=== PATIENT | male | born 1955 | race Caucasian/White ===

== ENCOUNTER 2017-12-14 09:28 | Emergency (ER) | payer OTHER ==
[2017-12-14 09:37] VITALS: BP 130/85; PULSE 96; TEMP 97.7; BMI 37.7
[2017-12-14] MEDS ORDERED: ALBUTEROL SO4 2.5/IPRATROPIUM 0.5 INH SOL 3 ML VIAL.NEB. NEB ONE ×2 (09:41→09:45)
[2017-12-14] MEDS ORDERED: AZITHROMYCIN 250 MG TABLET PO ONE (09:42)
[2017-12-14] MEDS ORDERED: AZITHROMYCIN 250 MG TABLET ONE (09:45)
--- NOTE | 2017-12-14 09:49 | PDOC ---
History of Present Illness - General Chief Complaint: Cold Symptoms Stated Complaint: cough,congestion Time Seen by Provider: 12/14/17 09:32 - History of Present Illness Initial Comments: 12/14/17 09:43 62-year-old man history of hypertension presents to the emergency department with persistent coughing for 4 days. The patient presented to an urgent care 4 days ago where he was prescribed Tessalon Perles and albuterol inhaler for a cough, sore throat and nasal congestion that he was having at the time.He reports a sore throat and nasal congestion have resolved but he has a persistent cough that is not allowed him to sleep for the last 3 nights. He has been using the Tessalon Perles and albuterol inhaler with minimal relief. He reports the cough is nonproductive. He denies any associated fevers, chills, body aches. He denies any chest pain or shortness of breath. He reports the sides of his ribs hurt bilaterally when he coughs because he sore from coughing. Denies any abdominal pain, nausea, vomiting, diarrhea. Has a distant history of smoking. Denies any headaches, weakness, numbness. Past History - Past Medical History Allergies/Adverse Reactions: Allergies Allergy/AdvReac Type Severity Reaction Status Date / Time No Known Allergies Allergy Verified 12/14/17 09:29 Home Medications: Ambulatory Orders Amlodipine Besylate/Benazepril [Lotrel 5-10 mg Capsule] 1 each PO DAILY Losartan/Hydrochlorothiazide [Losartan-Hctz 100-25 mg Tab] 1 each PO DAILY 09/09 Albuterol Sulfate Inhaler - [Ventolin Hfa Inhaler -] 2 inh PO Q6H 12/14/17 Benzonatate [Tessalon Pearls -] 200 mg PO TID 12/14/17 Anemia: No Asthma: No Cancer: No Cardiac Disorders: No CVA: No COPD: No DVT: No Dementia: No Diabetes: No Dialysis: No GI Disorders: No Disorders: No HTN: Yes Hypercholesterolemia: No Kidney Stones: No Liver Disease: No Psychiatric Problems: No Seizures: No Thyroid Disease: No Lung CA: No - Surgical History Abdominal Surgery: No Appendectomy: No Cardiac Surgery: No Cholecystectomy: No Gastric Stapling: No GI Surgery: No Lung Surgery: No - Immunization History Td Vaccination: Yes TDAP Vaccination: Yes Immunization Up to Date: Yes - Suicide/Smoking/Psychosocial Hx Smoking Status: No Smoking History: Former smoker Have you smoked in the past 12 months: No Number of Cigarettes Smoked Daily: 0 If you are a former smoker, when did you quit?: 1979 Information on smoking cessation initiated: No Hx Alcohol Use: Yes (occasional) Drug/Substance Use Hx: No Substance Use Type: None Review of Systems - Review of Systems Comments:: 12/14/17 09:49 GENERAL/CONSTITUTIONAL: No fever or chills. No weakness. HEAD, EYES, EARS, NOSE AND THROAT: No change in vision. No ear pain or discharge. No sore throat. GASTROINTESTINAL: No nausea, vomiting, diarrhea or constipation. GENITOURINARY: No dysuria, frequency, or change in urination. CARDIOVASCULAR: No chest pain or shortness of breath. RESPIRATORY: No wheezing, or hemoptysis. +cough MUSCULOSKELETAL: +b/l rib pain. No neck or back pain. SKIN: No rash NEUROLOGIC: No headache, vertigo, loss of consciousness, or change in strength/ sensation. ENDOCRINE: No increased thirst. No abnormal weight change. HEMATOLOGIC/LYMPHATIC: No anemia, easy bleeding, or history of blood clots. ALLERGIC/IMMUNOLOGIC: No hives or skin allergy. *Physical Exam - Vital Signs Last Vital Signs Temp Pulse Resp BP Pulse Ox 97.7 F 96 H 18 130/85 100 12/14/17 09:29 12/14/17 09:29 12/14/17 09:29 12/14/17 09:29 12/14/17 09:29 - Physical Exam Comments: 12/14/17 09:49 GENERAL: Awake, alert, and fully oriented, in no acute distress HEAD: No signs of trauma EYES: PERRLA, EOMI, sclera anicteric, conjunctiva clear ENT: Auricles normal inspection, hearing grossly normal, nares patent, oropharynx clear without exudates. Moist mucosa NECK: Normal ROM, supple, no lymphadenopathy, JVD, or masses LUNGS: +R sided exp wheezing, good air movemennt, no crackles or rhonchi HEART: Regular rate and rhythm, normal S1 and S2, no murmurs, rubs or gallops ABDOMEN: Soft, nontender, normoactive bowel sounds. No guarding, no rebound. No masses EXTREMITIES: Normal range of motion, no edema. No clubbing or cyanosis. No cords, erythema, or tenderness NEUROLOGICAL: Normal speech, cranial nerves intact, negative pronator drift, 5/ 5 strength in all 4 extremities, normal sensation to light touch in all 4 extremities, normal cerebellar exam, normal gait, normal reflexes and tone SKIN: Warm, Dry, normal turgor, no rashes or lesions noted. ED Treatment Course - RADIOLOGY Radiology Studies Ordered: Category Date Time Status CHEST PA & LAT [RAD] Stat Radiology 12/14/17 09:41 Ordered Medical Decision Making - Medical Decision Making 12/14/17 09:50 62-year-old male with a history of hypertension presents with persistent cough after URI symptoms 4 days ago. Vitals are unremarkable. Exam with right-sided wheezing. Differential includes but not limited to bronchitis versus pneumonia. We'll obtain chest x-ray to rule out any infiltrates and treat with duo nebs and a Z-Marko. Chest x-ray is negative, will also add a short course of steroids 12/14/17 10:58 CXR clear, likely bronchitis. Will prescribe z pack and steroids and DC to f/u with PMD in 1-2 days. I discussed the physical exam findings, ancillary test results and final diagnoses with the patient. I answered all of the patient's questions. The patient was satisfied with the care received and felt comfortable with the discharge plan and treatment plan. The patient will call their primary care physician within 24 hours to arrange follow-up and will return to the Emergency Department with any new, persistent or worsening symptoms. *DC/Admit/Observation/Transfer Diagnosis at time of Disposition: Bronchitis - Discharge Dispostion Disposition: HOME Condition at time of disposition: Stable Admit: No - Referrals - Patient Instructions Printed Discharge Instructions: DI for Acute Bronchitis Additional Instructions: Take your antibiotics and steroids as prescribed. Use a humidifier at night to help with your cough. Continue to use the albuterol inhaler every 4 hours. Follow up with your primary care doctor within 1-2 days. Return to the emergency department if you have any new, worsening or concerning symptoms. - Post Discharge Activity - Attestations Physician Attestion: 12/14/17 11:00 I, Dr. Adalberto Ennis MD, attest that this document has been prepared under my direction and personally reviewed by me in its entirety. I further attest, that it accurately reflects all work, treatment, procedures and medical decision -making performed by me.
== END 2017-12-14 11:11 | disposition home or self-care (01) ==
LOC: FER 09:28
PROC: 3E0F7GC Introduction of Other Therapeutic Substance into Respiratory Tract, Via Natural or Artificial Opening (ICD-10-PCS; principal; 2017-12-14)
DX: J40 Bronchitis, not specified as acute or chronic (principal)
CPT/HCPCS: 71046-TC-FY; 99281-25

== ENCOUNTER 2021-08-01 15:20 | Emergency (ER) | payer OTHER ==
[2021-08-01] MEDS ORDERED: FLUORESCEIN NA 1 EA STRIP OD ONE (15:49)
[2021-08-01] MEDS ORDERED: TETRACAINE 0.5% HCL 0.6ML DROPPER.BOTTLE OS ONE (15:49)
[2021-08-01 15:50] VITALS: BP 136/85; PULSE 65; TEMP 98.6; BMI 34.4
[2021-08-01] MEDS ORDERED: TETRACAINE 0.5% OPHTH SOLN 2 ML BOTTLE ONE (15:51)
[2021-08-01] MEDS ORDERED: FLUORESCEIN NA 1 EA STRIP ONE (15:51)
== END 2021-08-01 16:02 | disposition home or self-care (01) ==
LOC: FER 15:20
DX: T15.01XA Foreign body in cornea, right eye, initial encounter (principal); W31.1XXA Contact with metalworking machines, initial encounter; W29.8XXA Contact with other powered hand tools and household machinery, initial encounter
CPT/HCPCS: 99283-25

== ENCOUNTER 2023-12-05 14:07 | Emergency (ER) | payer OTHER ==
[2023-12-05 14:22] VITALS: BP 131/73; PULSE 86; RESP 16; TEMP 97.8; BMI 38.1
== END 2023-12-05 15:28 | disposition home or self-care (01) ==
LOC: FER 14:07
DX: M79.675 Pain in left toe(s) (principal)
CPT/HCPCS: 73660-TC-LT-FY; 99283-25